=== PATIENT | male | born 1945 | race Caucasian/White ===

== ENCOUNTER → 2016-06-27 | Outpatient (CLI) | payer MEDICARE, BC ==
[~2016-06-27] MED LIST: ACET1TAB12 PO; ALPH600C7 PO; ASPI-557 PO; CEPH-583 PO; CLOP75TA33 PO; CYAN10009 PO; DESO15OI TOP; FISH1CAP2 PO; FLAX100029 PO; LIDOCAINE 1% (10mg/ml) 30ml SDV ONE; METO-277 PO; MULT-933 PO; MethylPREDNISolone ACETATE 80mg/1ml ONE; NITR0.4T PO; SIMV10TA6 PO; [UNRECOGNIZED DRUG - OTHER]; [UNRECOGNIZED DRUG - OTHER] PO
--- NOTE | 2016-07-29 12:25 | PDPROCED ---
Procedure DATE OF PROCEDURE 06/27/16 PREPROCEDURE DIAGNOSIS Right hip pain. POSTPROCEDURE DIAGNOSIS Right hip pain. PROCEDURE Intraarticular injection of right hip with Depo-Medrol. SURGEON Uday Cespedes MD COMPLICATIONS None. ANESTHESIA Local. INDICATIONS Please see office notes. DESCRIPTION OF PROCEDURE The patient and the right hip were identified. The patient was placed on the fluoroscopy table and the right anterior hip was prepped and draped in normal sterile fashion. Ethyl Chloride spray was used to anesthetize the skin and a 25 gauge needle was used to inject 1% lidocaine at the anterior lateral thigh. This needle was then removed and a spinal needle was introduced into the same path and again lidocaine was used to anesthetize the path down to the hip joint. Confirmation that the needle was within the capsule of the hip joint was done by placing 1 cc of Omnipaque dye under fluoroscopic imaging until the capsule lines appeared on fluoroscopy confirming that the needle was intraarticular. 160 mg of Depo-Medrol was then injected in to the hip joint. The needle was removed. The site was then cleaned with alcohol and a Band-aid was placed. The patient tolerated the procedure well. FOLLOW UP 3-4 weeks or sooner with any problems or concerns. DONALD CESPEDES MD Jul 29, 2016 12:25
== END ==
LOC: CATH.INJ 08:10
PROVIDERS: ATTEND Orthopaedic Surgery
DX: M16.11 Unilateral primary osteoarthritis, right hip (principal)
CPT/HCPCS: 20610; 77002; J1040; Q9967

== ENCOUNTER → 2016-07-19 | Outpatient (CLI) | payer MEDICARE, BC ==
[~2016-07-19] MED LIST changes: -LIDOCAINE 1% (10mg/ml) 30ml SDV ONE; -MethylPREDNISolone ACETATE 80mg/1ml ONE
--- NOTE | 2016-07-19 09:01 | DI ---
Indication: ITS.REASON: G20 Parkinson's disease PROCEDURE: CT HEAD W/O CONTRAST: Encounter: Initial Comparison: None Technique: Axial CT images through the head were performed without contrast. Iterative Reconstruction dose reducing technique was utilized. FINDINGS: The ventricles are of normal size, shape, and contour for the patient's age. There are scattered areas of low attenuation in the white matter which most likely represent changes from chronic microvascular ischemia. The brainstem, cerebellum, and cerebral hemispheres otherwise have a normal morphology and CT attenuation. There is no evidence of midline displacement. No hemorrhage, signs of acute territorial stroke, mass effect, mass lesions, or edema is evident. The visualized portions of the skull base, midface, and calvarium demonstrate no abnormality. The paranasal sinuses are well aerated and free of significant disease. The tympanic and mastoid cavities appear normal. IMPRESSION: No acute intracranial abnormality or hemorrhage. .
== END ==
LOC: IMA 08:23
PROVIDERS: ATTEND Psychiatry & Neurology Neurology
DX: G20 Parkinson's disease (principal)

== ENCOUNTER 2016-09-15 13:38 | Inpatient (IN) ==
[2016-09-29] MEDS ORDERED: SALINE FLUSH 10ml SYRINGE IVF PRN (05:40)
[2016-09-29] MEDS ORDERED: NOZIN NASAL SWAB NAS ONE ×2 (06:00→09:49)
[2016-09-29] MEDS ORDERED: DEXAMETHASONE 4 MG/ML INJECTION IVP ONE (06:00)
[2016-09-29] MEDS ORDERED: ONDANSETRON 4 MG/2 ML INJECTION IVP ONE (06:00)
[2016-09-29] MEDS ORDERED: CEFAZOLIN 1 G INJECTION IVP ONE (06:00)
[2016-09-29] MEDS ORDERED: LR 1,000 ML IV SCH (06:00)
[2016-09-29] MEDS ORDERED: LIDOCAINE 1% (10mg/ml) 10mL MDV SQ ONE (06:00)
[2016-09-29] MEDS ORDERED: FAMOTIDINE PREMIX 20 MG/50 ML BAG IV ONE (06:00)
[2016-09-29] MEDS ORDERED: ACETAMINOPHEN 500 MG TABLET PO ONE (06:00)
[2016-09-29] MEDS ORDERED: METOCLOPRAMIDE 10mg/2ml INJECTION IVP ONE (06:00)
[2016-09-29] MEDS ORDERED: VANCOMYCIN 1,000 MG INJECTION ONE (06:22)
--- NOTE | 2016-09-29 06:48 | Anesthesia Preoperative Report ---
Anesthesia Preoperative Record - Date and Time Date: 09/29/16 Preoperative Diagnosis: Right Hip OA Proposed Procedure: Right Total Hip replacement NPO Since Date: 09/29/16 NPO Since Time: 00:00 Allergies/Adverse Reactions: Allergies Allergy/AdvReac Type Severity Reaction Status Date / Time No Known Allergies Allergy Verified 09/29/16 06:09 - Vital Signs Vital Signs: Temp Pulse Resp BP Pulse Ox 98.0 F 68 14 146/74 H 97 09/29/16 05:50 09/29/16 06:30 09/29/16 06:30 09/29/16 06:30 09/29/16 05:50 Height and Weight: Height 5 ft 8 in Weight 90.5 kg Body Mass Index 30.3 - Medications Inpatient Medications: Current Medications Lactated Ringer's (Lactated Ringers) 1,000 mls @ 50 mls/hr IV .Q20H CANDI Last Admin: 09/29/16 06:20 Dose: 50 mls/hr Epinephrine HCl 0.25 mg/Bupivacaine HCl 75 ml/Morphine Sulfate 15 mg/Ketorolac Tromethamine 60 mg/Sodium Chloride 65.25 mls @ 0 mls/hr IJ INTRAOP ONE; Per Protocol PRN Reason: Protocol Stop: 09/29/16 08:01 Miscellaneous Medication (Tranexamic 1gm/Ns 100 Irr Mix) 100 ml IR O ONE Stop: 09/29/16 12:39 Sodium Chloride (Iv Flush) 10 - 80 ml IVF PRN PRN PRN Reason: Flushing Home Medications: Home Medications Medication Instructions Recorded Confirmed Type Clopidogrel Bisulfate [Clopidogrel] 1 tab PO DAILY #90 01/05/16 09/28/16 History Cyanocobalamin (Vitamin B-12) 1 tab PO DAILY #30 tab 01/05/16 09/29/16 History [Vitamin B-12] Flaxseed Oil [Flax Seed Oil] 1 cap PO DAILY #0 01/05/16 09/29/16 History Multivitamin [Multi-Day Vitamins] 1 tab PO DAILY #30 tab 01/05/16 09/29/16 History Nitroglycerin [Nitrostat] 1 tab PO Q5-6MIN PRN #25 01/05/16 09/14/16 History carbidopa 10 mg-levodopa 100 mg 1 tab PO HS 08/30/16 09/29/16 History tablet aspirin 81 mg tablet,delayed 81 mg PO DAILY tab 09/13/16 09/29/16 History release Alpha Lipoic Acid 800 mg PO DAILY 09/14/16 09/29/16 History Ascorbic Acid [Vitamin C] 1,000 mg PO DAILY 09/14/16 09/29/16 History Carbidopa/Levodopa [Carbidopa-Levo 2 each PO DAILY 09/14/16 09/29/16 History 10-100 mg Odt] Folic Acid 0.8 mg PO DAILY 09/14/16 09/29/16 History Ibuprofen 600 mg PO BID PRN 09/14/16 09/29/16 History Magnesium 1 cap PO DAILY 09/14/16 09/29/16 History Metoprolol Succinate 25 mg PO DAILY 09/14/16 09/29/16 History Mometasone 0.1% Cream [Elocon 0.1% 1 applicatio TOP DAILY PRN 09/14/16 09/29/16 History Cream] Niacin (Inositol Niacinate) 500 mg PO DAILY 09/14/16 09/29/16 History [Niacin 500 mg Capsule] [place]-3/Dha/Epa/Fish Oil [Fish Oil 1 each PO DAILY 09/14/16 09/14/16 History 1,000 mg Softgel] Simvastatin [Simvastatin] 1 tab PO DAILY 09/14/16 09/29/16 History Is Patient on Beta Jacob?: No - Medical History Respiratory: DENIES: Asthma, Bronchitis, Chronic Obstructive Pulmonary Disease (COPD), Dyspnea, Orthopnea, Pulmonary Embolism, Pneumonia, Upper Respiratory Infection, Pulmonary Edema, Sleep Apnea, Tuberculosis, Other Cardiovascular: Reports: High Cholesterol, Myocardial Infarction (stents. no recent chest pain. stable EKG and stress Echo.) Gastrointestional: DENIES: Obstructive Bowel, Hepatitis, Cirrhosis, Nausea or Vomiting Present, Gastroesophageal Reflux Disease, Gastrointestinal Bleeding, Hiatal Hernia, Ulcer , Morbid Obesity, Other Neuro/Musculoskeletal: Denies: HX.MS.OSAR, Back Problems, Cerebrovascular Accident, Depression, Headaches, Loss of Consciousness, Muscle Weakness, Neuromuscular Disorder, Paralysis, Paresthesia, Syncope, Seizures, Other Renal/Endocrine: DENIES: Diabetes Mellitus Type 1, Diabetes Mellitus Type 2, Renal Failure, Dialysis, Thyroid Disease, Weight Loss, Weight Gain, Other Other History: DENIES: Anesthesia Reactions, Now, Blood Transfusions, Chemotherapy , Cancer, Hemophilia, Malignant Hyperthermia, Sickle Cell Disease, Other - Surgical History HEENT Surgeries: Reports: Tonsillectomy Cardiac Surgeries/Treatments: Reports: Cardiac Catheterization (with stents x3) GI Surgery/Treatments: Reports: Appendectomy Musculoskeletal Surgery/Tx: Reports: Orthopedic Surgery (fx wrist repair x2) - Social History Smoking Status: Former smoker Substance Use Type: does not use - Pertinent Findings Laboratory: CBC and BMP 09/29/16 06:00 09/29/16 06:00 BMP 09/29/16 06:00 Sodium 144 Potassium 4.1 Chloride 104 Carbon Dioxide 28 BUN 23.0 H Creatinine 1.0 Glucose 96 Calcium 9.2 EKG Rhythm: Normal Sinus Rhythm, Bundle Branch Block - Physical Exam Respiratory Exam: Present: lungs clear, bilateral breath sounds equal Cardiovascular Exam: Present: regular rate and rhythm, no murmur - Airway Assessment Mallampati Score: III TMD: 3 Fingerbreadths Neck Extension: fair Overall Assessment: may be difficult mask vent (bearded), may be difficult intubation (small mouth opening) - ASA ASA Score: 2 - Plan Anesthesia: General TIVA, General Inhalation Gases - Discussion Discussion: Discussed risks/options/alternatives of anesthesia and questions answered. Patient consents. Nursing pain assessment noted. Present for Discussion: spouse Attestation Statement: Prior to the delivery of any anesthetic medication, I examined the patient, developed the plan, obtained the patient's consent and discussed the risk and benefits of the procedure with the patient/guardian. - Additional Information Seen by Anesthesia: Yes
[2016-09-29] MEDS ORDERED: LIDOCAINE 2% IV ONE (07:00)
[2016-09-29] MEDS ORDERED: PROPOFOL IV ONE (07:00)
[2016-09-29] MEDS ORDERED: KETAMINE IV ONE (07:00)
[2016-09-29] MEDS ORDERED: [UNRECOGNIZED DRUG - OTHER] IV ONE (07:00)
[2016-09-29] MEDS ORDERED: MAGNESIUM SULFATE IV ONE (07:00)
--- NOTE | 2016-09-29 07:00 | History & Physical Update ---
- History and Physical Update Date: 09/29/16 Update: I evaluated this patient and found no changes in the history and clinical exam findings. The treatment plan and recommendations are also unchanged from the previous documentation.
[2016-09-29] MEDS ORDERED: FentaNYL 100 MCG/2 ML INJECTION ONE ×2 (07:02→07:48)
[2016-09-29] MEDS ORDERED: SUCCINYLCHOLINE 20mg/mL 10mL INJECTION ONE (07:53)
[2016-09-29] MEDS ORDERED: ROCURONIUM 50 MG/5 ML INJECTION IVP ONE (07:53)
[2016-09-29] MEDS ORDERED: PROPOFOL 20 ML ONE (07:53)
[2016-09-29] MEDS ORDERED: HYDROMORPHONE 2 MG/ML INJECTION IVP PRN (07:54)
[2016-09-29] MEDS ORDERED: ONDANSETRON 4 MG/2 ML INJECTION IVP PRN ×2 (07:54→09:49)
[2016-09-29] MEDS ORDERED: VANCOMYCIN 1,000 MG INJECTION IAR ONE (08:03)
[2016-09-29] MEDS: EPINEPHrine 0.25 MG, BUPIVACAINE 0.25% PF 30 ML, MORPHINE SULFATE 15 MG, KETOROLAC INJ ... IJ ONE ×2 (08:45→12:33)
--- NOTE | 2016-09-29 09:18 | Operative Note ---
- Procedure Date of Admission: 09/29/16 Side: right Preoperative Diagnosis: hip primary DJD Postoperative Diagnosis: Same as preoperative diagnosis. Operation: total hip arthroplasty (right) Surgeon: Uday Cespedes MD Cigarette Examiner: AVERY Bowen Complications: None. Regional/Trunk Block: Spinal Estimated Blood Loss: See Anesthesia Record. Fluids: Please see Anesthesia Record. Description of Procedure: Mr. Hernadez and his right hip were identified and marked in the preoperative holding area. He was brought back to the operating suite and spinal anesthetic was administered. He's then placed into a lateral decubitus position. The right lower joint was prepped and draped in the normal sterile fashion. Timeout was performed. I begun by placing the pelvic array through 3 small poke holes into the iliac crest. A posterior approach was then utilized to the hip. The muscle was retracted with a Charnley retractor. Short external rotators were then identified and detached and tagged. Capsulotomy was then performed. Checkpoint was placed into the greater trochanter. The hip was then dislocated and a femoral neck osteotomy made at the pre-templated level. The acetabulum was exposed and checkpoint placed superiorly. The acetabulum was then registered with [employer] robot. We then reamed with a 53 reamer again using robotic guidance. The cup was then placed into a 4020 position again using the robot. Position was confirmed with the robot. The liner was placed. We then moved to the femur and I broached to a size 7 we trialed a size 7 and a 0 head. Stability was confirmed both manually and with the robot. After a thorough irrigation a final Accolade 2 size 7 127 neck was placed. With a 2.5 head he clinically felt very good in the robot measured him 1 mm short and 1 mm decreased offset. After thorough irrigation a final ceramic 36 mm +2.5 mm head was placed. Final reduction was performed. Betadine solution used for 3 minutes and fully irrigated out. Joint cocktail was injected throughout the soft tissue. 1 g of TXA was placed into the wound allowed to sit for 5 minutes. The capsulotomy was then repaired with Ethibond. The muscle fascia was repaired with #1 Vicryl. I then left my partner to close the subcutaneous tissue with 2-0 Vicryl followed by running of 4-0 Monocryl. The pelvic array pin sites were also closed in this manner. Sterile dressing was then replaced and he will be taken to recovery room in the care of anesthesia.
[2016-09-29] MEDS ORDERED: DiphenhydrAMINE 50 MG/ML INJECTION IVP PRN (09:49)
[2016-09-29] MEDS ORDERED: ALPHA LIPOIC ACID PO SCH (09:49)
[2016-09-29] MEDS ORDERED: NITROGLYCERIN 0.4 MG SUBLINGUAL TABLET SL PRN (09:49)
[2016-09-29] MEDS ORDERED: OXYCODONE IR 5 MG TABLET PO PRN (09:49)
[2016-09-29] MEDS ORDERED: LORazepam 1 MG TABLET PO PRN (09:49)
[2016-09-29] MEDS ORDERED: DiphenhydrAMINE 25 MG CAPSULE PO PRN (09:49)
--- NOTE | 2016-09-29 10:07 | XRay Report ---
Indication: postoperative image right hip replacement PROCEDURE: XR pelvis w/ 1 view RT hip: Encounter: Initial Comparison: None Findings: Postoperative changes of right total hip replacement are seen. There is expected postoperative subcutaneous gas. No evidence of hardware failure or acute fracture. No retained radiopaque surgical instruments or sponges seen. Mild to moderate joint space narrowing in the left hip. Impression: New right total hip prosthesis without evidence of immediate complication. .
[2016-09-29] MEDS: NS 1,000 ML IV SCH (11:18)
[2016-09-29] MEDS: ACETAMINOPHEN 325 MG TABLET PO SCH ×4 (11:41→21:18)
[2016-09-29] MEDS: ASCORBIC ACID 500 MG TABLET PO SCH (11:41)
[2016-09-29] MEDS: POLYETHYL GLYCOL 3350 17gm PACKET PO SCH (11:41)
[2016-09-29] MEDS: CARBIDOPA/LEVODOPA 10 MG/100 MG TABLET PO SCH (12:14)
[2016-09-29] MEDS: CLOPIDOGREL 75 MG TABLET PO SCH (12:35)
[2016-09-29] MEDS ORDERED: TRANEXAMIC ACID 1gm/NS 100ml IRR MIX IR ONE (12:38)
[2016-09-29] MEDS: NOZIN NASAL SWAB NAS SCH ×2 (14:05→21:22)
[2016-09-29] MEDS: CEFAZOLIN 2 G in NS 100 ML IV SCH ×2 (15:26→23:21)
[2016-09-29] MEDS: ASPIRIN *EC* 81 MG TABLET PO SCH (18:26)
[2016-09-29] MEDS: DOCUSATE SODIUM 100 MG CAPSULE PO SCH (21:19)
[2016-09-29] MEDS ORDERED: SENNOSIDES 8.6 MG TABLET PO SCH (22:00)
[2016-09-29] MEDS ORDERED: SIMVASTATIN 40 MG TABLET PO SCH (22:00)
[2016-09-29] MEDS ORDERED: NIACIN ER 500 MG TABLET PO SCH (22:00)
[2016-09-30] MEDS: NS 1,000 ML IV SCH ×2 (00:23→03:07)
[2016-09-30] MEDS: NOZIN NASAL SWAB NAS SCH (06:15)
[2016-09-30] MEDS ORDERED: SENNOSIDES 8.6 MG TABLET PO PRN (07:05)
--- NOTE | 2016-09-30 08:12 | Orthopedic Progress Note ---
Date: Subjective/Severity of Illness: Doing great. Minimal pain. He has been mobile with good tolerance. No complaints or concerns at this time. Orthopedic Objective PO Vital signs: Temp Pulse Resp BP Pulse Ox 97.8 F 73 16 139/69 100 09/30/16 07:12 09/30/16 07:12 09/30/16 07:12 09/30/16 07:12 09/30/16 07:12 Height and Weight: Height 5 ft 8 in Weight 202 lb 9.677 oz Body Mass Index 30.3 - Constitutional General Appearance: Present: alert, no acute distress - Respiratory Exam Present: non-labored - Cardiovascular Exam Present: pedal pulses intact - Extremities Exam Extremities: Present: pulses intact - Surgical Site Incision: Mepilex dressing intact, dressing intact - Neurological Exam Present: no deficits - Psychiatric Exam Present: alert - Labs Result Diagrams: 09/30/16 04:09 09/30/16 04:09 Abnormal lab results 09/30/16 09/30/16 Range/Units 04:09 04:09 WBC 17.3 H D (4.5-11.0) T/MM3 RBC 3.61 L (4.50-5.90) M/MM3 Hgb 11.2 L D (13.5-17.5) GM/DL Hct 34.3 L D (41-53) % BUN 21.0 H (9-20) MG/DL Glucose 125 H (75-110) MG/DL Calcium 8.1 L D (8.4-10.2) MG/DL H & H 09/29/16 09/30/16 Range/Units 06:00 04:09 Hgb 14.4 11.2 L D (13.5-17.5) GM/DL Hct 43.2 34.3 L D (41-53) % Orthopedic Assessment and Plan (1) Degenerative arthritis of hip Status: Acute Qualifiers: Osteoarthritis type: primary Laterality: right Qualified Code(s): M16.11 - Unilateral primary osteoarthritis, right hip Assessment and Plan: Current anti-coagulation protocol for VTE prophylaxis. SCD's. PT/OT services to improve independent function. Discharge Planning per Case Management. Hospital Course Summary Disclaimer: The visit summary below is not to be considered part of the above Progress Note.
[2016-09-30] MEDS: POLYETHYL GLYCOL 3350 17gm PACKET PO SCH (08:44)
[2016-09-30] MEDS: ACETAMINOPHEN 325 MG TABLET PO SCH (08:44)
[2016-09-30] MEDS: ASCORBIC ACID 500 MG TABLET PO SCH (08:44)
[2016-09-30] MEDS: CARBIDOPA/LEVODOPA 10 MG/100 MG TABLET PO SCH (08:45)
[2016-09-30] MEDS: ASPIRIN *EC* 81 MG TABLET PO SCH (08:45)
[2016-09-30] MEDS: DOCUSATE SODIUM 100 MG CAPSULE PO SCH (08:45)
[2016-09-30] MEDS: CLOPIDOGREL 75 MG TABLET PO SCH (08:46)
[2016-09-30] MEDS ORDERED: METOPROLOL SUCCINATE (XL) 25mg TABLET PO SCH (09:00)
[2016-09-30] MEDS ORDERED: MAGNESIUM OXIDE 400 MG TABLET PO SCH (09:00)
[2016-09-30] MEDS ORDERED: FOLIC ACID 1 MG TABLET PO SCH (09:00)
[2016-09-30] MEDS ORDERED: OMEGA-3 ACID ESTERS 1 GM CAPSULE PO SCH (09:00)
--- NOTE | 2016-09-30 11:44 | Discharge Summary ---
Orthopedic Discharge Info Date of admission: 09/29/16 05:30 Anticipated date of discharge: 09/30/16 Primary care physician: Marcos Horvath DO Attending Physician: Palomo Cespedes MD Consults: 09/29/16 05:40 Consult to Anesthesiology [CONS] Routine Consulting Provider: AVERY Perez Reason For Exam: Preoperative Assessment 09/29/16 09:49 Case Management Consult [CONS] Routine Reason For Exam: Discharge Planning DME-Walker [CONS] Routine Height: 5 ft 8 in Weight: 199 lb 8.293 oz Comment: change dressing in 2 weeks Total Joint Outpatient Therapy [CONS] Routine Comment: change dressing in 2 weeks - Discharge Diagnosis (1) Degenerative arthritis of hip Qualifiers: Osteoarthritis type: primary Laterality: right Qualified Code(s): M16.11 - Unilateral primary osteoarthritis, right hip Status: Acute - Procedures Procedures: Robotic Rt NENA - Laboratory Result Diagrams: 09/30/16 04:09 09/30/16 04:09 Laboratory: Abnormal lab results 09/30/16 09/30/16 Range/Units 04:09 04:09 WBC 17.3 H D (4.5-11.0) T/MM3 RBC 3.61 L (4.50-5.90) M/MM3 Hgb 11.2 L D (13.5-17.5) GM/DL Hct 34.3 L D (41-53) % BUN 21.0 H (9-20) MG/DL Glucose 125 H (75-110) MG/DL Calcium 8.1 L D (8.4-10.2) MG/DL H & H 09/29/16 09/30/16 Range/Units 06:00 04:09 Hgb 14.4 11.2 L D (13.5-17.5) GM/DL Hct 43.2 34.3 L D (41-53) % Orthopedic Discharge HPI - HPI Comments This patient was admitted for elective surgical tx of end stage degenerative joint disease that failed to respond to conservative treatment. Further details of this is found in the admission H&P. Orthopedic Hospital Course Hospital course: 09/30/16 11:41 After appropriate preoperative clearance and signing of operative consent, the patient was given IV antibiotics, according to orthopedic protocol. The patient was taken to the operating room and underwent elective robotic right total hip arthroplasty. Following surgery, antibiotics were discontinued less than 24 hours according to joint protocol. Aspirin was initiated and SCDs added for DVT prevention. The dressing was clean, dry, and intact. Pain control was obtained via multimodal approach. Bowel motivation addressed with scheduled and PRN medications. Early mobilization was initiated through PT services. Discharge arrangements made by a collaborative effort between the patient and Case Management. Follow-up is scheduled in 2-3 weeks. Discharge instructions given by orthopedic providers and nursing staff at discharge. Discharge condition was good. Ongoing care required?: No Discharge Plan - Med Rec/Dispo [place] Instructions: [facility] Postop Instructions Additional Instructions: [facility] ON 10/04/2016 AT 1:00PM FOR PHYSICAL THERAPY EVAL. PHONE Prescriptions: New Acetaminophen [Tylenol] 650 mg PO QID Docusate Sodium [Colace] 100 mg PO BID cap Milk of Magnesia [Mom] 30 ml PO DAILY Oxycodone *Ir* [Roxicodone *Ir*] 5 - 15 mg PO Q3H PRN #60 PRN Reason: Breakthrough Pain PEG 3350 17gm PACKET [Miralax] 17 gm PO DAILY packet Aspirin *EC* [Ecotrin] 81 mg PO DAILY Continue Flaxseed Oil [Flax Seed Oil] 1 cap PO DAILY #0 Cyanocobalamin (Vitamin B-12) [Vitamin B-12] 1 tab PO DAILY #30 tab Ibuprofen 600 mg PO BID PRN PRN Reason: Pain Metoprolol Succinate 25 mg PO DAILY Alpha Lipoic Acid 800 mg PO DAILY Folic Acid 0.8 mg PO DAILY Magnesium 1 cap PO DAILY Niacin (Inositol Niacinate) [Niacin 500 mg Capsule] 500 mg PO DAILY Ascorbic Acid [Vitamin C] 1,000 mg PO DAILY Mometasone 0.1% Cream [Elocon 0.1% Cream] 1 applicatio TOP DAILY PRN PRN Reason: Dry Skin Nitroglycerin [Nitrostat] 1 tab PO Q5-6MIN PRN #25 PRN Reason: Chest Pain Clopidogrel Bisulfate [Clopidogrel] 1 tab PO DAILY #90 Multivitamin [Multi-Day Vitamins] 1 tab PO DAILY #30 tab Carbidopa/Levodopa [Carbidopa-Levo 10-100 mg Odt] 2 each PO DAILY Simvastatin 1 tab PO DAILY [place]-3/Dha/Epa/Fish Oil [Fish Oil 1,000 mg Softgel] 1 each PO DAILY Discharge Instructions/Outpatient Orders: Final Provider Discharge Instructions Location: Determined By Patient - Disposition 01 Discharged Home, Self-Care
[2016-10-01] MEDS ORDERED: BISACODYL 10 MG SUPPOSITORY RECTALLY SCH (20:00)
== END 2016-09-30 13:15 | disposition home or self-care (01) | DRG 470 ==
LOC: SRG 09-29 05:30
PROVIDERS: ADMIT Orthopaedic Surgery; ATTEND Orthopaedic Surgery